=== PATIENT | female | born 1935 | race Caucasian/White ===

== ENCOUNTER 2017-06-07 16:15 | Emergency (ER) | payer OTHER, MEDICAID ==
[~2017-06-07] VITALS: Ht 149.9 cm; Wt 70.0 kg
[2017-06-07 16:27] VITALS: BP 161/77
== END 2017-06-07 21:23 | disposition left against medical advice (07) ==
LOC: ER 16:53
DX: M25.562 Pain in left knee (principal); M25.561 Pain in right knee; E03.9 Hypothyroidism, unspecified; E11.9 Type 2 diabetes mellitus without complications; I10 Essential (primary) hypertension
CPT/HCPCS: 99283